=== PATIENT | female | born 1940 | race Caucasian/White ===

== ENCOUNTER 2018-06-22 06:08 | Emergency (ER) | payer MEDICARE, MEDICAID ==
[2018-06-22] MEDS ORDERED: DIAZEPAM INJ 10 MG/2 ML DISP.SYRIN IV ONE (06:41)
--- NOTE | 2018-06-22 06:46 | ER Document Report ---
ED Dizziness/Weakness - General Chief Complaint: Vertigo Stated Complaint: DIZZY,NAUSEA Time Seen by Provider: 06/22/18 06:34 Mode of Arrival: Medic Information source: Patient - HPI Patient complains to provider of: Other - This 78-year-old female presents for evaluation of a sensation of dizziness and room spinning this morning after waking up. She is going to bed feeling okay and then upon waking began having horrible vomiting. She has had an episode of vertigo in the past which did respond to home medications, she has noted these medications at this time. She otherwise denies any other recent illnesses fevers chills or symptoms. She denies any chest pain palpitations shortness of breath abdominal pain constipation diarrhea or dysuria. - Related Data Allergies/Adverse Reactions: promethazine [From Phenergan] Allergy (Verified 06/22/18 06:45) Past Medical History - General Information source: Patient - Social History Smoking Status: Never Smoker Family History: None Review of Systems - Review of Systems -: Yes All other systems reviewed and negative Physical Exam - Vital signs Vitals: Resp Pulse Ox 22 H 95 06/22/18 06:41 06/22/18 06:41 - General General appearance: Other - Appears uncomfortable, actively vomiting In distress: Mild - HEENT Head: Normocephalic Eyes: Normal Conjunctiva: Normal Cornea: Normal Extraocular movements intact: Yes Eyelashes: Normal Pupils: PERRL Ears: Normal External canal: Normal - Respiratory Respiratory status: No respiratory distress Chest status: Nontender Breath sounds: Normal Chest palpation: Normal - Cardiovascular Rhythm: Regular Heart sounds: Normal auscultation Murmur: No - Abdominal Inspection: Normal Tenderness: Nontender - Back Back: Normal - Extremities General upper extremity: Normal inspection, Normal ROM General lower extremity: Normal inspection, Normal ROM - Neurological Neuro grossly intact: Yes Cognition: Normal Orientation: AAOx4 [place] Coma Scale Eye Opening: Spontaneous [place]ahi Coma Scale Verbal: Oriented [place]ahi Coma Scale Motor: Obeys Commands [place] Coma Scale Total: 15 - Psychological Associated symptoms: Normal affect Course - Re-evaluation Re-evalutation: 06/22/18 09:21 This 78-year-old female presents for evaluation of room spinning in the setting of a previous history of vertigo. She previously had an episode of vertigo which responded to medical management. She had been feeling generally well until yesterday at which time she woke up feeling the room spinning is much worse of her eyes are open or she sits up or lays back. She does not take anything try and help with it. On examination she does have reproducible nystagmus, is in obvious discomfort actively vomiting. The rest of her neurologic examination is benign. Her physical exam does not demonstrate any other obvious abnormality. Given her historical features and symptoms suggestive of peripheral vertigo will plan for conservative treatment with Valium IV as well as administration of IV fluids as she has had several episodes of vomiting. We will plan for reassessment basic labs as well. Patient's labs do not demonstrate any obvious AK I, relatively unremarkable otherwise. Following a period of time in the emergency department her symptoms were improved, she was able to ambulate without assistance in the emerge C department get up to the commode and tolerate p.o. Given that her symptoms have improved and she is ambulatory will plan for discharge with return precautions and encouraged follow-up. She will be given a prescription for both meclizine as well as as needed Valium for her symptoms. She be discharged in the care of her daughter with return precautions as mentioned previously. - Vital Signs Vital signs: Temp Pulse Resp BP Pulse Ox 97.5 F 17 130/56 H 93 06/22/18 10:12 06/22/18 08:01 06/22/18 08:01 06/22/18 08:01 - Laboratory Result Diagrams: 06/22/18 07:04 06/22/18 09:30 Laboratory results interpreted by me: 06/22/18 06/22/18 06/22/18 07:04 08:30 09:30 RDW 14.2 H Chloride 111 H Creatinine 0.45 L Urine Protein 30 H Urine Ascorbic Acid 40 H Discharge - Discharge Clinical Impression: Vertigo Condition: Good Disposition: HOME, SELF-CARE Instructions: Vertigo ([facility]) Additional Instructions: You were seen today in the emergency department for your vertigo, you had an evaluation including physical exam and administration of medicine through the IV. Use the meclizine to help with your vertigo symptoms. Use the Valium only as needed for sleep and intractable vertigo symptoms. Return for worsening dizziness, inability to eat or drink, or vomiting which will not improve with medicine. Prescriptions: Diazepam [Valium 2 mg Tablet] 2 mg PO Q6HP PRN #15 tablet PRN Reason: Meclizine HCl [Antivert 12.5 mg Tablet] 12.5 mg PO BID PRN #14 tab PRN Reason: Referrals: LOCALMD,NO [NO LOCAL MD] - Follow up as needed
[2018-06-22 07:36] LABS: ABSOLUTE BASOPHILS # (AUTO) 0.1 10^3/uL (0.0-0.2); ABSOLUTE EOSINOPHILS # (AUTO) 0.2 10^3/uL (0.0-0.6); ABSOLUTE LYMPHOCYTES (AUTO) 1.2 10^3/uL (0.5-4.7); ABSOLUTE MONOCYTES (AUTO) 0.4 10^3/uL (0.1-1.4); ABSOLUTE NEUT (AUTO) 3.2 10^3/uL (1.7-8.2); BASOPHILS % (AUTO) 1.2 % (0-2); EOSINOPHILS % (AUTO) 3.6 % (0-6); HEMATOCRIT 41.2 % (36.0-47.0); HEMOGLOBIN 13.9 g/dL (12.0-15.5); LYMPHOCYTES % (AUTO) 23.4 % (13-45); MEAN CORPUSCULAR HEMOGLOBIN 29.8 pg (27.0-33.4); MEAN CORPUSCULAR HGB CONC 33.7 g/dL (32.0-36.0); MEAN CORPUSCULAR VOLUME 88 fl (80-97); MONOCYTES % (AUTO) 8.5 % (3-13); PLATELET COUNT 175 10^3/uL (150-450); RED BLOOD COUNT 4.67 10^6/uL (3.72-5.28); RED CELL DISTRIBUTION WIDTH 14.2 % (11.5-14.0); SEGMENTED NEUTROPHILS % (AUTO) 63.3 % (42-78); TOTAL CELLS COUNTED % (AUTO) 100 %
[2018-06-22] MEDS ORDERED: NORMAL SALINE 1000 ML 1,000 ML IV ONE (07:55)
[2018-06-22 08:14] VITALS: BP 130/56
[2018-06-22 08:49] LABS: APPEARANCE,URINE SLIGHTLY-CLOUDY; BILIRUBIN,URINE NEGATIVE (NEGATIVE); COLOR,URINE YELLOW; GLUCOSE, URINE NEGATIVE (NEGATIVE); KETONES,URINE NEGATIVE (NEGATIVE); LEUKOCYTE ESTERASE,URINE NEGATIVE (NEGATIVE); NITRITE,URINE NEGATIVE (NEGATIVE); PROTEIN,URINE 30 mg/dL (NEGATIVE); URINE SPECIFIC GRAVITY 1.021; UROBILINOGEN,URINE NEGATIVE mg/dL (<2.0)
--- NOTE | 2018-06-22 09:39 | EKG REPORT ---
SEVERITY:- NORMAL ECG - SINUS RHYTHM : Confirmed by: Mike Love MD 22-Jun-2018 09:38:21
[2018-06-22 10:08] LABS: ANION GAP 10 (5-19); BLOOD UREA NITROGEN 14 mg/dL (7-20); CALCIUM 8.9 mg/dL (8.4-10.2); CARBON DIOXIDE 24 mmol/L (22-30); CHLORIDE 111 mmol/L (98-107); GLUCOSE 104 mg/dL (75-110); POTASSIUM 4.1 mmol/L (3.6-5.0); SODIUM 144.8 mmol/L (137-145)
== END 2018-06-22 11:11 | disposition home or self-care (01) ==
LOC: ER 06:08
DX: R42 Dizziness and giddiness (principal); R11.2 Nausea with vomiting, unspecified; Z88.8 Allergy status to other drugs, medicaments and biological substances
CPT/HCPCS: 93005; 99284; 96361; 96374; 36415; 85025; 80048; 81001; 93010; J3360; J7030

== ENCOUNTER 2018-07-15 13:32 | Emergency (ER) | payer MEDICARE, MEDICAID ==
--- NOTE | 2018-07-15 14:07 | ER Document Report ---
ED Extremity Problem, Lower - General Stated Complaint: POSSIBLE HEMORRHAGE Time Seen by Provider: 07/15/18 14:04 Notes: Patient says that about 1130 today, she noted bleeding from the left lateral ankle. It was very heavy bleeding and EMS was called and they report a large amount of blood where the patient was sitting or standing. Patient says that about 2 days ago she noticed a bump and a scab over the lateral aspect of the left ankle. Then, last night she noted swelling of the ankle and foot and had intended to go see a doctor. The swelling has increased today. Patient does not know of any injury to her ankle. She does have varicose veins. She is never had bleeding from any of the varicose veins like this. Patient is here in this area helping to take care of her mother who is 100 years old. Patient's only medical condition is glaucoma. She also takes a baby aspirin daily. - Related Data Allergies/Adverse Reactions: promethazine [From Phenergan] Allergy (Verified 06/22/18 06:45) Past Medical History - Social History Smoking Status: Unknown if Ever Smoked Family History: None, Reviewed & Not Pertinent Pulmonary Medical History: Reports: Hx Pneumonia EENT Medical History: Reports: Eyes - Glaucoma Malignancy Medical History: Reports: Other - Uterine cancer Past Surgical History: Reports: Hx Cholecystectomy Review of Systems - Review of Systems Notes: REVIEW OF SYSTEMS: CONSTITUTIONAL : Denies fever. EENT: Denies eye, ear, nose or mouth or throat pain or other symptoms. CARDIOVASCULAR: Denies chest pain. RESPIRATORY: Denies cough, chest congestion, or shortness of breath. GASTROINTESTINAL: Denies abdominal pain or nausea, vomiting, or diarrhea. GENITOURINARY: Denies difficulty or painful urinating, urinary frequency, blood in urine. MUSCULOSKELETAL: Denies back or neck pain. Denies joint pain or swelling. SKIN: Denies rash or skin lesions. See HPI. NEUROLOGICAL: Denies LOC or altered mental status. Denies headache. Denies sensory loss or motor deficits. ALL OTHER SYSTEMS REVIEWED AND NEGATIVE. Physical Exam - Vital signs Interpretation: Normal - Notes Notes: PHYSICAL EXAMINATION: GENERAL: Well-appearing, in no acute distress. HEAD: Atraumatic, normocephalic. EYES: Pupils equal round and reactive to light, extraocular movements intact. ENT: oropharynx clear without exudates. Moist mucous membranes. NECK: Normal range of motion, supple. LUNGS: Breath sounds clear and equal bilaterally. HEART: Regular rate and rhythm without murmurs. ABDOMEN: Soft, nontender. No guarding or rebound. No masses. BACK: No tenderness throughout entire back. EXTREMITIES: Normal range of motion without pain. Lots of blood around patient' s left foot and in between the toes. NEUROLOGICAL: Normal speech, normal gait. Normal sensory, motor, and reflex exams. Awake, alert, and oriented x3. Cranial nerves normal. PSYCH: Normal mood, normal affect. SKIN: Warm, dry, no rashes. Patient has a small 1/2 cm scab over the left lateral ankle near the distal fibula. There is no active bleeding at this time , but the patient says that is where she was bleeding from. No other bleeding site can be found. Course - Vital Signs Vital signs: We tried a pressure dressing on the ankle, but when we took it off after an hour and checked it, there have been some bleeding onto the bandages. I had a tray set up and anesthetized the patient with 1% Xylocaine with epinephrine and then put a couple of 5-0 nylon sutures in the scabbed lesion. We recheck this after she had been ambulating and had the bandage on for a while and there was no evidence of any new bleeding now. - Laboratory Result Diagrams: 07/15/18 13:46 07/15/18 13:46 Laboratory results interpreted by me: 07/15/18 07/15/18 13:46 13:46 RBC 3.66 L Hgb 11.2 L Hct 32.1 L Chloride 108 H Anion Gap 3 L Glucose 127 H Calcium 8.1 L Direct Bilirubin 0.5 H Total Protein 5.2 L Albumin 2.7 L Procedures - Laceration/Wound Repair Left Lateral Ankle Wound length (cm): 0.5 Wound's Depth, Shape: Superficial. No: Into muscle Laceration pre-procedure: Chloraprep applied Anesthetic type: 1% Lidocaine w/epi Wound Repaired With: Sutures Suture Size/Type: 5:0, Ethilon Number of Sutures: 2 Layer Closure?: No Post-procedure wound care: Sterile dressing applied Post-procedure NV exam normal: Yes Complications: No Discharge - Discharge Clinical Impression: Varicose vein of leg, Abrasion of ankle, left Condition: Stable Disposition: HOME, SELF-CARE Additional Instructions: Varicose Veins You have varicose veins. These are veins that bulge out under the skin. They develop when the valves in the veins fail. These valves normally keep blood moving upstream towards the heart. Without the valves, the pressure of the blood expands and weakens the veins. Varicose veins may simply be unsightly. But often they cause aching pains in the legs, especially after standing. There may be itching and irritation. Occasionally a vein may become clotted, with redness, tenderness, and swelling. Elevate your legs periodically during the day. Support hose can help. Don' t rub or scratch at bulging veins -- this makes them worse. Don't sit with your legs crossed. Avoid standing in one place for more than a few minutes. Walking reduces the pressure in the veins. If varicose veins continue to cause severe symptoms, an operation to remove them ("vein stripping") might help. Call the doctor or return if there is increased swelling, redness, or fever , if there is general leg pain, or if a varicose veins bleeds and won't stop after 15 minutes of direct pressure. LACERATION CARE: Your laceration has been sutured to keep the skin edges aligned during healing. The time of suture removal depends on the nature and location of your cut. Please follow the care instructions the doctor has outlined for you and return for further care, according to the schedule you've been given. Keep the wound and dressing clean. Unless you were told otherwise, you may shower daily, blotting the wound dry with a clean, unused towel. At other times, If the dressing gets wet or blood soaked, remove it and blot the wound dry, then reapply a new dressing. Unless you were instructed otherwise, dressings should be changed at least daily. If any signs of infection occur (swelling, redness, drainage, increasing tenderness, red streaks, tender lumps in the armpit or groin above the laceration, or fever), see the doctor immediately. SOAP CLEANSING: Gently wash the wound daily using a mild soap (like Ivory, Phisoderm, Neutrogena). Use warm water, rubbing gently until all debris, ooze, and crusting have been washed from the wound. Allow to dry briefly (about 10 minutes) after cleaning. Repeat this cleansing at least three times a day for the first two days and then once or twice a day. ANTIBIOTIC OINTMENT PROTECTION: Your wounds are such that dressing them is not practical or optional. After cleansing, you should apply a thin coating of antibiotic ointment ( Bacitracin, not Neosporin) to the wounds at least three times daily. This lessens infection risk, and may decrease the amount of scarring. Use a q-tip or dull butter knife, not your finger, to apply this ointment. Any debris or ooze which builds up in the ointment should be gently rubbed off with a sterile gauze pad. Harder crusting may need to be gently scrubbed off with a clean wash cloth with soap and warm water, perhaps applying a warm, wet wash cloth to the wound for ten minutes first. Development of redness, severe itching, or blistering may mean allergy to the ointment. See the doctor. Return for reevaluation if you develop redness, heat, red streaks, fever, or other signs of infection. FOLLOW-UP CARE: Your sutures should be removed in 9 - 10 days. To facilitate a timely removal of your sutures, you may return to the Emergency Department at [facility]. You do not need to call for an appointment, but the best time to come in for suture removal is early in the morning. If you have been referred to another physician for follow-up care, call that physicians office for an appointment as you were instructed. If you experience a significant change in your laceration, or if you are concerned there may be an infection (swelling, redness, drainage, increasing tenderness, red streaks, tender lumps in the armpit or groin above the laceration, or fever) , return to the Emergency Department immediately re-evaluation.
--- NOTE | 2018-07-15 14:42 | RADIOLOGY REPORT (SQ) ---
EXAM DESCRIPTION: ANKLE LEFT AP/LATERAL COMPLETED DATE/TIME: 07/15/2018 2:18 pm REASON FOR STUDY: Swelling and pain left ankle COMPARISON: None. NUMBER OF VIEWS: Three views. TECHNIQUE: AP, lateral, and oblique radiographic images acquired of the left ankle. LIMITATIONS: None. FINDINGS: MINERALIZATION: Normal. BONES: No fracture or dislocation. There is a prominent dorsal calcaneal spur. JOINTS: No effusions. SOFT TISSUES: No soft tissue swelling. No foreign body. OTHER: No other significant finding. IMPRESSION: Calcaneal spur. No acute abnormality at the ankle. TECHNICAL DOCUMENTATION: JOB ID: [id number] [employer]- All Rights Reserved Reading location - IP/workstation name: [email or web address]
[2018-07-15 15:05] LABS: ABSOLUTE BASOPHILS # (AUTO) 0.1 10^3/uL (0.0-0.2); ABSOLUTE EOSINOPHILS # (AUTO) 0.2 10^3/uL (0.0-0.6); ABSOLUTE LYMPHOCYTES (AUTO) 1.4 10^3/uL (0.5-4.7); ABSOLUTE MONOCYTES (AUTO) 0.7 10^3/uL (0.1-1.4); ABSOLUTE NEUT (AUTO) 6.7 10^3/uL (1.7-8.2); BASOPHILS % (AUTO) 0.9 % (0-2); EOSINOPHILS % (AUTO) 2.3 % (0-6); HEMATOCRIT 32.1 % (36.0-47.0); HEMOGLOBIN 11.2 g/dL (12.0-15.5); LYMPHOCYTES % (AUTO) 15.9 % (13-45); MEAN CORPUSCULAR HEMOGLOBIN 30.7 pg (27.0-33.4); MEAN CORPUSCULAR VOLUME 88 fl (80-97); MONOCYTES % (AUTO) 7.3 % (3-13); PLATELET COUNT 198 10^3/uL (150-450); RED BLOOD COUNT 3.66 10^6/uL (3.72-5.28); RED CELL DISTRIBUTION WIDTH 13.9 % (11.5-14.0); SEGMENTED NEUTROPHILS % (AUTO) 73.6 % (42-78); TOTAL CELLS COUNTED % (AUTO) 100 %; WHITE BLOOD COUNT 9.1 10^3/uL (4.0-10.5)
[2018-07-15 15:09] LABS: ALANINE AMINOTRANSFERASE 19 U/L (9-52); ALBUMIN 2.7 g/dL (3.5-5.0); ALKALINE PHOSPHATASE 51 U/L (38-126); ASPARTATE AMINO TRANSFERASE 14 U/L (14-36); BILIRUBIN,DIRECT 0.5 mg/dL (0.0-0.4); BILIRUBIN,TOTAL 1.1 mg/dL (0.2-1.3); BLOOD UREA NITROGEN 11 mg/dL (7-20); CALCIUM 8.1 mg/dL (8.4-10.2); CHLORIDE 108 mmol/L (98-107); GLUCOSE 127 mg/dL (75-110); POTASSIUM 3.7 mmol/L (3.6-5.0); TOTAL PROTEIN 5.2 g/dL (6.3-8.2)
[2018-07-15 15:17] LABS: CARBON DIOXIDE 26 mmol/L (22-30); SODIUM 137.4 mmol/L (137-145)
[2018-07-15 15:18] LABS: ANION GAP 3 (5-19)
[2018-07-15] MEDS ORDERED: LIDOCAINE 1%/EPINEPHRINE INJ 20 ML VIAL INJ ONE (15:32)
== END 2018-07-15 17:11 | disposition home or self-care (01) ==
LOC: ER 13:32
DX: S90.512A Abrasion, left ankle, initial encounter (principal); X58.XXXA Exposure to other specified factors, initial encounter; I83.90 Asymptomatic varicose veins of unspecified lower extremity; Z79.82 Long term (current) use of aspirin; Z85.42 Personal history of malignant neoplasm of other parts of uterus; Z88.8 Allergy status to other drugs, medicaments and biological substances
CPT/HCPCS: 99282; 36415; 85025; 80053; 73600; 12001; J3490

== ENCOUNTER 2018-07-18 10:55 | Emergency (ER) | payer MEDICARE, MEDICAID ==
--- NOTE | 2018-07-18 11:58 | RADIOLOGY REPORT (SQ) ---
EXAM DESCRIPTION: ANKLE LEFT COMPLETE COMPLETED DATE/TIME: 07/18/2018 11:49 am REASON FOR STUDY: Infection on the left lateral side of foot ruling COMPARISON: 07/15/2018. NUMBER OF VIEWS: Three views. TECHNIQUE: AP, lateral, and oblique without weight bearing radiographic images acquired of the left ankle. LIMITATIONS: None. FINDINGS: MINERALIZATION: Normal. BONES: No acute fracture or dislocation. No worrisome bone lesions. No significant osteophytes. JOINTS: No effusions. SOFT TISSUES: No soft tissue swelling. No foreign body. OTHER: No other significant finding. IMPRESSION: NO SIGNIFICANT FINDING IN THE LEFT ANKLE. TECHNICAL DOCUMENTATION: JOB ID: [id number] [employer]- All Rights Reserved Reading location - IP/workstation name: [email or web address]
[2018-07-18 12:42] LABS: ABSOLUTE BASOPHILS # (AUTO) 0.1 10^3/uL (0.0-0.2); ABSOLUTE EOSINOPHILS # (AUTO) 0.2 10^3/uL (0.0-0.6); ABSOLUTE LYMPHOCYTES (AUTO) 1.4 10^3/uL (0.5-4.7); ABSOLUTE MONOCYTES (AUTO) 0.6 10^3/uL (0.1-1.4); ABSOLUTE NEUT (AUTO) 4.6 10^3/uL (1.7-8.2); BASOPHILS % (AUTO) 1.1 % (0-2); EOSINOPHILS % (AUTO) 2.7 % (0-6); HEMATOCRIT 30.9 % (36.0-47.0); HEMOGLOBIN 10.8 g/dL (12.0-15.5); LYMPHOCYTES % (AUTO) 20.1 % (13-45); MEAN CORPUSCULAR HGB CONC 35.1 g/dL (32.0-36.0); MEAN CORPUSCULAR VOLUME 89 fl (80-97); MONOCYTES % (AUTO) 8.3 % (3-13); PLATELET COUNT 230 10^3/uL (150-450); RED BLOOD COUNT 3.49 10^6/uL (3.72-5.28); RED CELL DISTRIBUTION WIDTH 14.2 % (11.5-14.0); SEGMENTED NEUTROPHILS % (AUTO) 67.8 % (42-78); TOTAL CELLS COUNTED % (AUTO) 100 %; WHITE BLOOD COUNT 6.8 10^3/uL (4.0-10.5)
[2018-07-18 12:58] LABS: ANION GAP 10 (5-19); BLOOD UREA NITROGEN 10 mg/dL (7-20); CARBON DIOXIDE 26 mmol/L (22-30); CHLORIDE 107 mmol/L (98-107); GLUCOSE 112 mg/dL (75-110); POTASSIUM 3.8 mmol/L (3.6-5.0); SODIUM 142.8 mmol/L (137-145)
[2018-07-18] MEDS ORDERED: SULFAMETHOXAZOLE/TRIMETHOPRIM 800-160 MG TABLET PO ONE (13:20)
--- NOTE | 2018-07-18 13:24 | ER Document Report ---
ED Extremity Problem, Lower - General Chief Complaint: Foot Pain Stated Complaint: FOOT SWELLING Time Seen by Provider: 07/18/18 11:11 Mode of Arrival: Ambulatory Information source: Patient Notes: Patient is a 78-year-old female comes emergency room for a recheck. She was seen here on 07/15/[address] Hamm was found to have a ruptured varicose vein on the left lateral side of her foot on the left. He applied 2 stitches to an area that was irritated and bleeding. And sent patient home to follow-up with her primary and sutures out in 9 days. She is back today stating that the pain is gotten worse and there is swelling and warmth to where the sutures are and she is having hard time moving her foot. She also complains of more swelling to that left leg. She denies any fevers. 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 TRAVEL OUTSIDE OF THE [place] IN LAST 30 DAYS: No - HPI Patient complains to provider of: Altered sensation, Pain, Swelling Location: Ankle, Foot, Leg Occurred: Other - 3 days ago Where: Home Onset/Duration: Gradual, Worse Quality of pain: Achy, Sharp Severity: Moderate Pain Level: 3 Context: Prolonged pressure on ext Recent injury: No Exacerbated by: Movement, Walking Relieved by: Nothing - Related Data Allergies/Adverse Reactions: promethazine [From Phenergan] Allergy (Verified 07/18/18 10:58) Past Medical History - General Information source: Patient - Social History Smoking Status: Former Smoker Cigarette use (# per day): No Chew tobacco use (# tins/day): No Smoking Education Provided: No Frequency of alcohol use: None Drug Abuse: None Family History: None, Reviewed & Not Pertinent Patient has suicidal ideation: No Patient has homicidal ideation: No - Past Medical History Cardiac Medical History: Denies: Hx Coronary Artery Disease, Hx Heart Attack Pulmonary Medical History: Reports: Hx Pneumonia Renal/ Medical History: Denies: Hx Peritoneal Dialysis Past Surgical History: Reports: Hx Appendectomy, Hx Cholecystectomy, Hx Hysterectomy Review of Systems - Review of Systems Constitutional: No symptoms reported EENT: No symptoms reported Cardiovascular: No symptoms reported Respiratory: No symptoms reported Gastrointestinal: No symptoms reported Genitourinary: No symptoms reported Female Genitourinary: No symptoms reported Musculoskeletal: See HPI, Leg swelling, Ankle swelling Skin: No symptoms reported Hematologic/Lymphatic: No symptoms reported Neurological/Psychological: No symptoms reported Physical Exam - Vital signs Vitals: Temp Pulse Resp BP Pulse Ox 98.5 F 72 20 128/49 H 96 07/18/18 11:02 07/18/18 11:02 07/18/18 11:02 07/18/18 11:02 07/18/18 11:02 Interpretation: Normal - Notes Notes: Well-nourished well-developed 78-year-old female no apparent distress. - General General appearance: Appears well, Alert - HEENT Head: Normocephalic, Atraumatic Eyes: Normal - Respiratory Respiratory status: No respiratory distress Chest status: Nontender Breath sounds: Normal. No: Rales, Rhonchi, Stridor, Wheezing Chest palpation: Normal - Cardiovascular Rhythm: Regular Heart sounds: Normal auscultation Murmur: No - Extremities General upper extremity: Normal inspection, Nontender, Normal ROM, Normal strength General lower extremity: Tender, Edema, Normal strength, Normal temperature, Normal weight bearing. No: Normal ROM, Estela's sign Ankle: Tender, Edema, Other - Examination of patient's left ankle foot shows that she has an area that had previously been sutured 2 days ago for the sake of stopping a ruptured varicosity. The areas inflamed and is erythematous. There is some moderate amount of temperature increased to the area with redness. There is some minimal streaking at this time. Very tender to touch. Definite distinction in color from what was described before. Patient has flexion extension and rotation of the ankle but complains of discomfort. There is some swelling or edema which is also going into the foot just slightly. And there is edema of the leg as well which may be just slightly larger than the right leg. Patient has excessive varicosities on all of her lower extremities. Majority of patient's edema is related to gravity dependent with poor circulation. She has good 2+ pulses on the left foot and the dorsalis pedal area as well. She has good cap refill in the nailbeds of the toes. The area described for the infection portion is approximately quarter size were about 2 cm. Foot: Tender, Other - See description and ankle above - Skin Skin Temperature: Warm Skin Moisture: Dry Skin Color: Other - See description and ankle above Course - Re-evaluation Re-evalutation: 07/18/18 13:28 At this point I believe that there may be a slight infection at the area of the ruptured varicosity we will leave the sutures in because I do not believe that it is healed enough to stop the bleeding. We will treated with Bactrim in the event that it could possibly be methicillin-resistant. Also will have patient wearing her support stockings. We questioned her about this and she says she wears them sometimes. At this junction she needs to be wearing these type of support stockings daily because her varicosities are going to start rupturing or she is going to have increased amount of edema. I informed her to monitor the wound and if it is getting worse to come back to ER for recheck. I have done a CBC on her and it is negative. I have done an ultrasound of the left lower extremity and there is no sign of a DVT. And I have done an x-ray of the ankle to make sure there was no sign of osteomyelitis. At this point patient go home we will put her on Bactrim as stated and have her follow-up if needed. He is away from home currently in her primary doctor is not reachable. - Vital Signs Vital signs: Temp Pulse Resp BP Pulse Ox 98.5 F 72 20 128/49 H 96 07/18/18 11:02 07/18/18 11:02 07/18/18 11:02 07/18/18 11:02 07/18/18 11:02 - Laboratory Result Diagrams: 07/18/18 11:55 07/18/18 11:55 Laboratory results interpreted by me: 07/18/18 07/18/18 11:55 11:55 RBC 3.49 L Hgb 10.8 L Hct 30.9 L RDW 14.2 H Creatinine 0.48 L Glucose 112 H Discharge - Discharge Clinical Impression: Varicose veins of both legs with edema Cellulitis Qualifiers: Site of cellulitis: extremity Site of cellulitis of extremity: lower extremity Laterality: left Qualified Code(s): L03.116 - Cellulitis of left lower limb Condition: Stable Disposition: HOME, SELF-CARE Instructions: Cellulitis ([facility]) Additional Instructions: Home and rest. Medications prescribed. Keep the area clean. Dress it with an antibiotic ointment and a Band-Aid. Highly suggest that you wear your support stockings daily. This will help her circulation dramatically. Your ultrasounds were negative your x-rays are negative your blood work was negative. I am still placing you on antibiotics for the fact that I believe that the area where the sutures are and has now become slightly infected. Apply antibiotic ointment there are 3 times a day with a Band-Aid and return to ER if you have any concerns. Prescriptions: Fluconazole [Diflucan] 150 mg PO ONCE PRN #1 tablet PRN Reason: Sulfamethoxazole/Trimethoprim [Bactrim Ds Tablet] 1 each PO BID #14 tablet Forms: Parent Work Note
[2018-07-18 13:41] VITALS: BP 139/65
--- NOTE | 2018-07-19 09:51 | XCELERA REPORT ---
[address] [place] [facility] [address] Lower Extremity Venous Evaluation Procedure: Color flow and duplex imaging of the veins of the left lower extremity as well as the right Common Femoral vein. Right Sided Venous Evaluation The right common femoral vein is fully compressible. Spontaneous and phasic flow is present in the right common femoral vein. Left Sided Venous Evaluation Normal vessel filling wall to wall, compression and augmentation as well as Colour flow down to the infrageniculate veins. Interpretation Summary No duplex evidence of DVT or obstruction in the left lower extremity nor in the right Common Femoral vein. Name: JOHNATHON CARREON Age: 78 yrs Gender: Female : 1940 Patient Status: Emergency Patient Location: ER Study Date: 07/18/2018 12:22 PM Reason For Study: Swollen leg left side Ordering Physician: DEBORAH WOOD PA-C Performed By: Shelia Ramires : DEBORAH WOOD PA-C > Yo Suarez
== END 2018-07-18 13:50 | disposition home or self-care (01) ==
LOC: ER 10:55
DX: I83.893 Varicose veins of bilateral lower extremities with other complications (principal); L03.116 Cellulitis of left lower limb; M79.672 Pain in left foot; Z87.891 Personal history of nicotine dependence; Z90.49 Acquired absence of other specified parts of digestive tract; Z90.710 Acquired absence of both cervix and uterus
CPT/HCPCS: 99284; 36415; 85025; 80048; 93971 ×2; 73610; A9270

== ENCOUNTER 2018-07-26 10:14 | Emergency (ER) | payer MEDICARE, MEDICAID ==
[2018-07-26 10:24] VITALS: BP 142/54
--- NOTE | 2018-07-26 10:49 | ER Document Report ---
HPI - HPI Pain Level: Denies Notes: Patient is a 78-year-old female who presents with chief complaint of request for suture removal. Patient has sutures to the left ankle area that replaced on 07/15/18 after a fall. - CONSTITUTIONAL Constitutional: DENIES: Fever, Chills - EENT EENT: DENIES: Sore Throat, Ear Pain, Eye problems - NEURO Neurology: DENIES: Headache, Weakness, Vision blurred, Dizzinesss / Vertigo - CARDIOVASCULAR Cardiovascular: DENIES: Chest pain - RESPIRATORY Respiratory: DENIES: Trouble Breathing, Coughing - GASTROINTESTINAL Gastrointestinal: DENIES: Abdominal Pain, Black / Bloody Stools - MUSCULOSKELETAL Musculoskeletal: REPORTS: Extremity pain Past Medical History - Social History Smoking Status: Never Smoker Chew tobacco use (# tins/day): No Frequency of alcohol use: None Drug Abuse: None Family History: None, Reviewed & Not Pertinent Patient has suicidal ideation: No Patient has homicidal ideation: No - Past Medical History Cardiac Medical History: Denies: Hx Coronary Artery Disease, Hx Heart Attack Pulmonary Medical History: Reports: Hx Pneumonia Renal/ Medical History: Denies: Hx Peritoneal Dialysis Past Surgical History: Reports: Hx Appendectomy, Hx Cholecystectomy, Hx Hysterectomy Vertical Provider Document - CONSTITUTIONAL Notes: PHYSICAL EXAMINATION: GENERAL: Well-appearing, well-nourished and in no acute distress. HEAD: Atraumatic, normocephalic. EYES: Pupils equal round extraocular movements intact, conjunctiva are normal. ENT: Nares patent NECK: Normal range of motion LUNGS: No respiratory distress Musculoskeletal: Normal range of motion NEUROLOGICAL: Normal speech, normal gait. PSYCH: Normal mood, normal affect. SKIN: Warm, Dry, normal turgor, no rashes or lesions noted. Healing wound noted to left ankle with sutures intact. Slight erythema around the wound site. - INFECTION CONTROL TRAVEL OUTSIDE OF THE [place] IN LAST 30 DAYS: No Course - Re-evaluation Re-evalutation: 07/26/18 10:47 Sutures removed, wound is well approximated and appears to be healing well. Patient reports pain around the area there is a very slight erythema. Patient reports she took all of her antibiotics. I will give the patient a short course of Keflex. - Vital Signs Vital signs: Temp Pulse Resp BP Pulse Ox 97.7 F 60 18 142/54 H 93 07/26/18 10:19 07/26/18 10:19 10/06/18 10:19 07/26/18 10:19 07/26/18 10:19 Discharge - Discharge Clinical Impression: Visit for suture removal, Encounter for wound re-check Condition: Stable Disposition: HOME, SELF-CARE Additional Instructions: Your sutures were removed today. There is slight redness and pain around the wound site which is why I am putting it on the additional course of antibiotics. Please take them as prescribed. You may also use a thin layer of bacitracin to the area twice daily. Prescriptions: Cephalexin Monohydrate [Keflex 500 mg Capsule] 500 mg PO Q6H 5 Days #20 capsule
== END 2018-07-26 11:03 | disposition home or self-care (01) ==
LOC: ER 10:14
DX: Z48.02 Encounter for removal of sutures (principal); S91.012D Laceration without foreign body, left ankle, subsequent encounter; W19.XXXD Unspecified fall, subsequent encounter